=== PATIENT | female | born 1960 | race Caucasian/White ===

== ENCOUNTER 2022-05-26 06:48 | Emergency (ER) | payer BC, SELFPAY ==
[2022-05-26 06:57] VITALS: BP 161/90; PULSE 75; RESP 18; TEMP 36.6; O2SAT 99; BMI 19.8
[2022-05-26 07:10] VITALS: BP 163/94; PULSE 73; RESP 18; O2SAT 99
--- NOTE | 2022-05-26 07:27 | ED.NURSE ---
was having jerking type seizures. 1 mg im of ativan given in lant thigh. dr alexandre in to see.
--- NOTE | 2022-05-26 07:37 | ED.GENADULT ---
HPI - General Adult General Chief complaint: Weakness Stated complaint: Weakness, dehydrated Time Seen by Provider: 05/26/22 06:57 Source: patient and family Mode of arrival: ambulatory Limitations: no limitations History of Present Illness HPI narrative: 62-year-old female presents to the emergency department with very vague weakness. On more complete description, she states that she seems to lack in her G with doing her usual activities. It is that she has to stop and rest when vacuuming or other similar activities and does not seem to have as much ?Pep as a few months ago. Symptoms have been very gradual onset. She denies any chest pain, no dyspnea, no dizziness or neurological changes. Been no recent falls or injury. She denies any blood in her stools, symptoms of anemia. She does not get her menstrual cycles. She otherwise has noticed some hot flashes, more often than in the last couple of years occurring in the last few weeks, in her up to 4 times per night. She is not on any type of hormone replacement therapy nor did she recently discontinued this. She states that she is very so the fact that her stools have been loose over the last few days is not really unusual for her. She reports that she has a very poor appetite and she constantly feels full. That she may be dehydrated be drinking as much as usual. Little bit of upper abdominal vague discomfort after eating and drinking and a cholecystectomy 30 years ago that she reports was uncomplicated. She does feel like she is losing weight but is not able to give me an accurate number this. Admits that her symptoms are very vague and she has not attempted to seek primary care evaluation 1st. States that she does not have a primary care provider. There were no specific emergent symptoms that made her come to the emergency department in the wee hours of the morning. She denies significant alcohol use. She is a nonsmoker. She states that her last colonoscopy was normal about 7 years ago, her last mammogram was probably about 3 years ago and was normal, has not had evaluation since. When I ask her about any changes, he does wonder if anxiety is playing a role. She is not a big eater and never has been but seems worse than usual. He want if nerves and the upcoming holidays are getting to her and ways that she may not even be fully aware of. Past medical history she states is benign except some hypothyroidism, no major long-term health problems. Surgically she has had 1 uncomplicated low transverse and an uncomplicated cholecystectomy. She is prescribed levothyroxine. She has no drug allergies. She is adopted and does not know any of her biological family medical history. Socially she is , no tobacco or regular alcohol use. ROS is notable for the vague nonspecific symptoms as above, otherwise denies times 12 systems. Related Data Home Medications Medication Instructions Recorded Confirmed levothyroxine 100 mcg tablet 100 mcg PO DAILY 05/26/22 05/26/22 (Synthroid) Allergies Allergy/AdvReac Type Severity Reaction Status Date / Time No Known Drug Allergies Allergy Verified 05/26/22 07:00 PFSH PFS Social History Smoking Status: Former smoker Do you use any of these nicotine containing products: None Second hand tobacco smoke exposure: No How often do you have a drink containing alcohol: monthly or less How many standard drinks containing alcohol do you have on a typical day: 1 or 2 How often do you have six or more drinks on one occasion: Never AUDIT-C Alcohol total score: 1 Non-prescribed substance use: marijuana (any form) service: No Exam Const: Vital Signs, click to edit/add: Vital Signs - 24 hr 05/26/22 06:57 05/26/22 07:10 Temperature 97.8 F Pulse Rate [Right Pulse Oximeter] 75 73 Respiratory Rate 18 18 Blood Pressure [Ri ght Upper Arm] 161/90 H 163/94 H Pulse Oximetry 99 99 Oxygen Delivery Me thod Room Air Room Air Documenting provider has reviewed patient's vital signs: yes Common normals: no apparent distress and alert General appearance: cooperative, comfortable and well kempt Orientation/consciousness: Yes awake Other: Good historian, answers questions completely. HENMT: Common normals: normocephalic and TM's normal bilaterally Head and scalp: normocephalic Face and sinus: normal facial exam Tympanic membrane: TM's normal bilaterally Mouth: oral and palatal mucosa normal Throat: posterior oropharynx normal Eye: Common normals: conjunctivae normal and no scleral icterus General eye: normal appearance of both eyes Conjunctiva: conjunctiva(e) normal Neck & C-Spine: Common normals: full ROM, no lymphadenopathy and thyroid normal Thyroid: thyroid normal Resp: Common normals: normal respiratory effort, no use of accessory muscles and clear to auscultation bilaterally Auscultation: clear to auscultation bilaterally Cardio: Common normals: regular rate, regular rhythm, S1 normal heart sound, S2 normal heart sound, no murmurs and peripheral pulses 2+ throughout Rate: regular rate Rhythm: regular rhythm Heart sounds: S1 normal and S2 normal Peripheral pulses: pulses 2+ throughout GI: Common normals: Normal to inspection, nondistended, normoactive bowel sounds present, soft to palpation, no hepatosplenomegaly and no masses Palpation: soft and no hepatosplenomegaly Other: Seems very mildly tender to the epigastric region only. Back & Pelvis: Common normals: thoracic and lumbar spine normal to inspection Extremity: Common normals: normal to inspection, full ROM, normal capillary refill and no pedal edema Neuro: Sensorium/orientation: awake and alert Speech: speech normal Motor exam: strength 5/5 throughout, no tremor noted and no movement abnormalities noted Psych: Common normals: affect normal and activity/motor behavior normal Appearance: well kempt Attitude: calm and engaged Activity/motor behavior: appropriate eye contact Insight: fair Judgement: judgment good Skin: Common normals: no rashes or lesions noted, skin turgor normal and no jaundice General skin exam: no rashes or lesions noted and turgor normal Course Course Hospital Course: Other than mild hypertension, little examined vital signs are reassuring. Differential diagnosis including thyroid abnormality, anemia, dehydration, anxiety, gastrointestinal disorder. Symptoms are mildly suspicious for gastritis due to poor appetite, vague upper abdominal discomfort. Will start with basic labs. Counseled patient that if these are reassuring, I would anticipate handing the workup further over to a primary care provider and she was understanding of this. Will also administer 20 mg of famotidine p.o. x1 Vital Signs Vital signs: Initial Vital Signs Temperature 97.8 F 05/26/22 06:57 Temperature Source Temporal Artery Scan 05/26/22 06:57 Pulse Rate 75 05/26/22 06:57 Respiratory Rate 18 05/26/22 06:57 Blood Pressure 161/90 H 05/26/22 06:57 Blood Pressure Mean 113 05/26/22 06:57 Blood Pressure Position Sitting 05/26/22 06:57 Pulse Oximetry 99 05/26/22 06:57 Oxygen Delivery Method 05/26/22 06:57 Vital Signs Temperature 97.8 F 05/26/22 06:57 Pulse Rate 75 05/26/22 06:57 Respiratory Rate 18 05/26/22 06:57 Blood Pressure 161/90 H 05/26/22 06:57 Pulse Oximetry 99 05/26/22 06:57 Oxygen Delivery Method 05/26/22 06:57 Temperature 97.8 F 05/26/22 06:57 Pulse Rate 73 05/26/22 07:10 Respiratory Rate 18 05/26/22 07:10 Blood Pressure 163/94 H 05/26/22 07:10 Pulse Oximetry 99 05/26/22 07:10 Oxygen Delivery Method 05/26/22 07:10 Medical Decision Making MDM Narrative Medical decision making narrative: Discussed findings with patient. Unfortunately, lab but is running behind on thyroids due to an analyzer issue. It will be quite some time and I have already stated an hour past the end of my shift. They let me know that it will be a significant longer time and patient and I discussed this and she elects to discharge home and follow up with her primary care provider regarding symptoms. She will start the famotidine as we discussed, take her thyroid medicine more regularly and follow up with the primary care provider to further discuss her symptoms and see how the trial of famotidine is going. Lab Data Lab results reviewed: Yes I reviewed the patient's lab results Labs: Lab Results 05/26/22 05/26/22 05/26/22 Range/Units 08:04 08:04 08:04 WBC 4.83 (4.50-11.00) K/uL RBC 3.58 L (4.00-5.20) m/uL Hgb 14.6 (12.0-16.0) gm/dL Hct 40.0 (33.0-51.0) % MCV 112 H (80-100) fL MCH 41 H (26-34) pg MCHC 37 H (32-36) gm/dL RDW Coeff of [place] 13.1 (11.5-15.5) % Plt Count 119 L (140-440) K/uL Neut % (Auto) 78.7 H (42.0-72.0) % Lymph % (Auto) 14.3 L (20-44) % [place] % (Auto) 6.2 (0.0-11.0) % Eos % (Auto) 0.2 (0.0-7.0) % Baso % (Auto) 0.2 (0.0-3.0) % Neut # (Auto) 3.80 (1.7-7.0) K/uL Lymph # (Auto) 0.70 L (0.90-2.90) K/uL [place] # (Auto) 0.30 (0.00-0.90) K/UL Eos # (Auto) 0.01 (0.00-0.50) K/uL Baso # (Auto) 0.01 (0.00-0.30) K/uL Abs Immat Gran (auto) 0.02 (0.00-0.30) K/uL Imm/Tot Granulo (auto) 0.4 % Sodium 140 (135-149) mmol/L Potassium 4.6 (3.6-5.1) mmol/L Chloride 107 (96-114) mmol/L Carbon Dioxide 26 (20-32) mmol/L BUN 12 (7-30) mg/dL Creatinine 0.8 (0.5-1.5) mg/dL Estimated Creat Clear 44.42 Estimated GFR 84 ml/min Glucose 97 (60-115) mg/dL Calcium 10.0 (8.4-10.6) mg/dL Total Bilirubin 2.2 H (0.1-1.5) mg/dL AST 23 (12-35) U/L ALT 13 (4-35) U/L Alkaline Phosphatase 75 (40-150) U/L C-Reactive Protein < 0.5 L (0.5-1.0) mg/dL Total Protein 7.4 (6.0-8.3) g/dL Albumin 4.6 (3.3-5.0) g/dL Lipase 75 (23-300) U/L POC Troponin I 0.00 L (0.01-0.04) ng/ml Discharge Plan Discharge Clinical Impression: Fatigue Patient Disposition: Home w/ Parent or Adult Condition: Stable Instructions: Fatigue (ED) Additional Instructions: There were some very mild changes in your labs that appear chronic. The things that we look at to determine if there is a new, sudden problem are all normal. Your inflammatory markers are normal, your digestive enzymes are normal. There is no signs of dehydration. Your kidney function is good. Your liver is functioning well. There are no signs of anemia. I have given you a dose of the medicine called famotidine, this is an imeq-vow-[id number] stomach acid medicine that I would like for you to start taking for the next 2 weeks to see if this does improve your appetite and discomfort. I would like for you to schedule a full physical with the primary care provider to discuss your symptoms further and to look more into things. There does not appear to be anything emergent going on today. If there is any severe shortness of breath, chest pain or weakness were your unable to care for herself, please come back to the emergency department. You will need to follow up with your primary care doctor regarding the thyroid test results. These will not be back for several hours. Please take her thyroid medicine consistently so that we better know how to care for you. In the meantime, please start the famotidine, the stomach acid medicine as we discussed and plan to discuss this at your follow-up with the primary care physician. Activity Level: No Restrictions Discharge Diet: Regular Prescriptions: No Action levothyroxine [Synthroid] 100 mcg tablet 100 mcg PO DAILY Follow Up/Referrals: Mary Thomas MD [Primary Care Provider] - Stand Alone Forms: [employer] Info Instructions
[2022-05-26] MEDS: FAMOTIDINE 20 MG TABLET PO (08:04)
--- OUTSIDE RECORDS SUMMARY | 2022-05-26 08:04 | XMS_ITS | Clinical Summary ---
:1960 Author Organization [employer] [facility] [place] [address] Care Team Providers Name Role Phone Ashley Burns DO Primary Care Provider Allergies No known active allergies Medications Medication Sig Dispensed Refills Start Date End Date Status levothyroxine TAKE ONE TABLET 90 tablet 2 01/01/2017 Active (SYNTHROID) 100 mcg BY MOUTH BEFORE tabletIndications: BREAKFAST Hypothyroidism (acquired) meclizine (ANTIVERT) Take 1 tablet by 20 tablet 0 02/27/2019 Active 12.5 mg mouth 3 times tabletIndications: daily if needed Dizziness for Vertigo. Active Problems Problem Noted Date ASCUS of cervix with negative high risk HPV 09/08/2016 Overview: 09/08/2016: ASCUS / HPV negative PLAN: Cotest in 3 years (DUE: 09/2019) Hypothyroidism Overview: Not on any medication Family History Patient is adopted Medical History Relation Name Comments Good Health Daughter Good Health Son Relation Name Status Comments Daughter Alive Son Alive Social History Tobacco Use Types Packs/Day Years Used Date Never Smoker Smokeless Tobacco: Never Used Alcohol Use Standard Drinks/Week Comments Yes 0 (1 standard drink = 0.6 oz pure alcoho l) socially Alcohol Habits Answer Date Recorded How often do you have a drink containing alcohol? Not asked How many drinks containing alcohol do you have on a typical Not asked day when you are drinking? How often do you have six or more drinks on one occasion? No t asked Comment: socially 09/08/2016 Sex Assigned at Date Recorded Not on file Obstetrics History Last Filed Vital Signs Vital Sign Reading Time Taken Comments Blood Pressure 110/70 02/27/2019 1:39 PM CDT Pulse 63 02/27/2019 1:39 PM CDT Temperature 36 ??C (96.8 ??F) 02/27/2019 1:39 PM CDT Respiratory Rate 16 02/27/2019 1:39 PM CDT Oxygen Saturation 98% 02/27/2019 1:39 PM CDT Inhaled Oxygen Concentration - - Weight 49.1 kg (108 lb 4.8 oz) 02/27/2019 1:39 PM CDT Height 154.9 cm (5' 1) 02/27/2019 1:39 PM CDT Body Mass Index 20.46 02/27/2019 1:39 PM CDT Plan of Treatment Health Maintenance Due Date Last Done Comments COVID-19 vaccine series (#1) 1960 HIV for age 15-65 1976 Tetanus booster 1981 Zoster (shingles) series for age 1004/15/2011 50+ (1 of 2) Depression screening for age 12+ 09/08/2017 09/08/2016 Mammogram for age 45-75 09/22/2017 09/22/2016 Pap test for age 21-65 09/09/2019 09/08/2016, 09/08/2016 BMI (ht and wt on same day) for 02/28/2020 02/27/2019, 02/02, age 18+ 09/08/2016 Lipids for age 45-75 09/08/2021 09/08/2016 Influenza for age 50-64 03/04/2022 Colonoscopy through age 75 10/27/2026 10/27/2016, 7, 10/27/2016, Additional history exists [facility] Hepatitis C screening for age Completed 09/08/2016 18-79 Results Not on filefrom Last 3 Months Insurance Payer Benefit Plan / Subscriber ID Effective Dates Phone Addre ss Type Group [id number] 2016-Present [address] [place] [id number] (Home) [place] [id number] Care Teams Communications Operator Relationship Specialty Start Date End Date Ashley Burns DO PCP - General Internal Medicine 09/01/[address] [place] [address] [place] [id number]
[2022-05-26 08:22] LABS: Basophils Absolute Auto 0.01 K/uL (0.00-0.30); Basophils Percent Auto 0.2 % (0.0-3.0); Eosinophils Absolute Auto 0.01 K/uL (0.00-0.50); Eosinophils Percent Auto 0.2 % (0.0-7.0); Hemoglobin* 14.6 gm/dL (12.0-16.0); Immature Granulocytes Abs Auto 0.02 K/uL (0.00-0.30); Immature Granulocytes Pct Auto 0.4 %; Lymphocytes Percent Auto 14.3 % (20-44); Mean Corpuscular HGB Conc 37 gm/dL (32-36); Mean Corpuscular Hemoglobin 41 pg (26-34); Mean Corpuscular Volume 112 fL (80-100); Monocytes Percent Auto 6.2 % (0.0-11.0); Neutrophils Percent Auto 78.7 % (42.0-72.0); Platelet Count* 119 K/uL (140-440); RDW Coefficient of Variation % 13.1 % (11.5-15.5); Red Blood Count 3.58 m/uL (4.00-5.20); White Blood Count* 4.83 K/uL (4.50-11.00)
[2022-05-26 08:28] LABS: Slide Review Reflex No
[2022-05-26 08:32] LABS: Albumin* 4.6 g/dL (3.3-5.0); Chloride* 107 mmol/L (96-114); Sodium* 140 mmol/L (135-149)
[2022-05-26 08:33] LABS: Potassium* 4.6 mmol/L (3.6-5.1)
[2022-05-26 08:35] LABS: Aspartate Amino Transferase* 23 U/L (12-35); Bilirubin Total* 2.2 mg/dL (0.1-1.5); Carbon Dioxide* 26 mmol/L (20-32); Creatinine* 0.8 mg/dL (0.5-1.5); Est. Creatinine Clearance* 44.42; Estimated Glomerular Filt Rate 84 ml/min; Total Protein* 7.4 g/dL (6.0-8.3)
[2022-05-26 08:36] LABS: Alanine Aminotransferase* 13 U/L (4-35); Alkaline Phosphatase* 75 U/L (40-150); Blood Urea Nitrogen* 12 mg/dL (7-30); Glucose* 97 mg/dL (60-115); Lipase* 75 U/L (23-300)
[2022-05-26 08:39] LABS: C Reactive Protein* < 0.5 mg/dL (0.5-1.0)
[2022-05-26 09:05] VITALS: BP 141/87; PULSE 70; RESP 18; TEMP 36.8; O2SAT 96
[2022-05-26 12:09] LABS: Free T4 Free Thyroxine* 1.05 ng/dL (0.70-1.85)
== END 2022-05-26 09:05 | disposition home or self-care (01) ==
PROVIDERS: Emergency Provider Family Medicine; PCP Family Medicine
DX: R53.83 Other fatigue (principal)
CPT/HCPCS: 36415; 80053; 83690; 84439; 84443; 85025; 86140; 99282; 99283; A9270